=== PATIENT | male | born 1975 | race Caucasian/White ===

== ENCOUNTER 2023-09-01 15:24 | Emergency (ER) | payer SELFPAY ==
[2023-09-01] MEDS ORDERED: Lidocaine 1% PF 2 ML SDV INJECT ONE (17:53)
[2023-09-01] MEDS ORDERED: Diphtheria,Pertussis(Acell),Tetanus Vaccine 0.5 ML Syringe IM ONE (17:53)
[2023-09-01] MEDS ORDERED: Acetaminophen/HYDROcodone 325-5 MG Tab PO ONE (18:13)
[2023-09-01] MEDS ORDERED: Cephalexin 500 MG Cap PO ONE (18:13)
== END 2023-09-01 19:37 | disposition home or self-care (01) ==
LOC: EDBD 15:24 → MW.ED 15:24 → MERGE 15:24 → MW.ED 19:37
DX: S68.620A Partial traumatic transphalangeal amputation of right index finger, initial encounter (principal); Z23 Encounter for immunization; W20.8XXA Other cause of strike by thrown, projected or falling object, initial encounter
CPT/HCPCS: 73140; 99284; A9270; 99283; J3490